=== PATIENT | female | born 1995 | race Caucasian/White ===

== ENCOUNTER 2018-04-29 13:27 | Emergency (ER) | payer BC, OTHER ==
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
[2018-04-29 14:49] VITALS: BP 117/68
== END 2018-04-29 14:48 | disposition home or self-care (01) ==
LOC: EDUNIT#
DX: S80.12XA Contusion of left lower leg, initial encounter (principal); S93.492A Sprain of other ligament of left ankle, initial encounter; V13.4XXA Pedal cycle driver injured in collision with car, pick-up truck or van in traffic accident, initial encounter; Y92.410 Unspecified street and highway as the place of occurrence of the external cause; Y99.8 Other external cause status; Y93.55 Activity, bike riding